=== PATIENT | female | born 1995 | race Two or more races ===

== ENCOUNTER 2021-08-25 11:15 | Inpatient (IN) | payer OTHER ==
[2021-08-25] MEDS ORDERED: CLINDAMYCIN 900 MG PREMIX IVPB 900 MG/50 ML BAG IVPB ONE (11:37)
[2021-08-25] MEDS ORDERED: OXYTOCIN 20 UNITS in 0.9% NS 20 UNIT/1,000 ML INFUS.BAG IV ONE (12:04)
[2021-08-25] MEDS ORDERED: BUTORPHANOL TARTRATE 1 MG/ML VIAL ONE (12:39)
[2021-08-25] MEDS ORDERED: PROMETHAZINE HCL 25 MG/1 ML VIAL ONE (12:39)
[2021-08-25] MEDS ORDERED: BUTORPHANOL TARTRATE 1 MG/ML VIAL IVPUSH ONE ×2 (12:47→13:57)
[2021-08-25] MEDS ORDERED: PROMETHAZINE HCL 25 MG/1 ML VIAL IVPUSH ONE ×2 (12:47→13:57)
[2021-08-25] MEDS ORDERED: PROMETHAZINE HCL 25 MG/1 ML VIAL IVPB ONE ×2 (12:47→13:45)
[2021-08-25] MEDS ORDERED: DEXTROSE 5%-LACTATED RINGERS 1,000 ML IV SCH ×2 (13:00→17:15)
[2021-08-25 13:31] LABS: BASO % 0.3 % (0-2.0); EOS % 1.1 % (0-4.5); HEMATOCRIT 32.3 % (32.4-45.2); HEMOGLOBIN 10.7 GM/dL (10.7-15.3); LYMPH % 9.1 % (8-40); MCH 27.7 pg (25.7-33.7); MCHC 33.1 g/dl (32.0-36.0); MEAN CELL VOLUME 83.8 fl (80-96); MEAN PLT VOLUME 11.3 fl (7.5-11.1); MONO % 6.5 % (3.8-10.2); PLATELET COUNT 153 10^3/uL (134-434); RBC 3.85 M/mm3 (3.60-5.2); WHITE BLOOD COUNT 14.4 K/mm3 (4.0-10.0)
[2021-08-25 13:36] LABS: INR 0.95 (0.83-1.09); PROTHROMBIN TIME (PATIENT) 10.6 SEC (9.7-13.0)
[2021-08-25 13:39] LABS: ACTIVATED PTT 25.9 SECONDS (25.2-36.5)
[2021-08-25 14:01] LABS: CALCIUM 8.4 mg/dL (8.5-10.1)
[2021-08-25 14:04] LABS: CREATININE 0.5 mg/dL (0.55-1.3)
[2021-08-25 14:07] VITALS: BMI 33.0
[2021-08-25 14:37] LABS: SYPHILIS W/ RPR CONF NON-REACTIVE (NONREACTIVE)
[2021-08-25] MEDS ORDERED: CLINDAMYCIN 900 MG PREMIX IVPB 900 MG/50 ML BAG IVPB SCH ×2 (15:00)
[2021-08-25 15:05] LABS: HIV INTERPRETATION NEGATIVE (NEGATIVE)
[2021-08-25 15:18] LABS: URINE BARBITURATES NEGATIVE (NEGATIVE)
[2021-08-25 15:19] LABS: COCAINE, UR NEGATIVE (NEGATIVE); METHADONE, UR NEGATIVE (NEGATIVE); OPIATES, URI NEGATIVE (NEGATIVE); PHENCYCLIDINE,URINE NEGATIVE (NEGATIVE); URINE BENZODIAZEPINES NEGATIVE (NEGATIVE)
[2021-08-25 15:35] LABS: URINE AMPHETAMINES NEGATIVE (NEGATIVE)
[2021-08-25] MEDS ORDERED: MIDAZOLAM HCL 2 MG/2 ML SINGLE DOSE VIAL ONE (16:26)
[2021-08-25 16:57] LABS: CORD HCO3 23.8 mmHg (20-29); CORD PCO2 56.8 mmHg (30-78)
[2021-08-25 17:00] LABS: CORD BASE EXCESS -5.8 mmol/L (0-2); CORD HCO3 20.2 mmHg (20-29); CORD PCO2 41.3 mmHg (30-78); CORD pH 7.307 (7.14-7.44)
[2021-08-25] MEDS ORDERED: BENZOCAINE 20% 57 GM BOTTLE TP PRN (17:04)
[2021-08-25] MEDS ORDERED: METHYLERGONOVINE MALEATE 0.2 MG/1 ML AMP IM PRN (17:04)
[2021-08-25] MEDS ORDERED: WITCH HAZEL 50% (TUCKS) 40 PAD/JAR PAD TP PRN (17:04)
[2021-08-25] MEDS ORDERED: oxyCODONE HCL 5 MG TABLET PO PRN ×2 (17:04)
[2021-08-25] MEDS ORDERED: BENZOCAINE 28 GM HEMORRHOIDAL OINTMENT PR PRN (17:04)
[2021-08-25] MEDS ORDERED: IBUPROFEN 800 MG/8 ML IJ IVPB PRN (17:04)
[2021-08-25] MEDS ORDERED: diphenhydrAMINE HCL 25 MG CAPSULE (FP) PO PRN (17:04)
[2021-08-25] MEDS ORDERED: OXYTOCIN 20 UNITS in 0.9% NS 20 UNIT/1,000 ML INFUS.BAG IV SCH (17:15)
[2021-08-25] MEDS: CLINDAMYCIN 900 MG PREMIX IVPB 900 MG/50 ML BAG IVPB SCH ×2 (17:51→22:57)
[2021-08-25] MEDS ORDERED: CEFAZOLIN 1 GM/D5W 50 ML IVPB SCH (18:00)
[2021-08-26] MEDS: CLINDAMYCIN 900 MG PREMIX IVPB 900 MG/50 ML BAG IVPB SCH (06:01)
[2021-08-26 06:06] LABS: BASO % 0.4 % (0-2.0); EOS % 0.4 % (0-4.5); HEMATOCRIT 27.9 % (32.4-45.2); HEMOGLOBIN 9.3 GM/dL (10.7-15.3); MCH 27.9 pg (25.7-33.7); MCHC 33.3 g/dl (32.0-36.0); MEAN CELL VOLUME 83.9 fl (80-96); MEAN PLT VOLUME 11.1 fl (7.5-11.1); MONO % 8.5 % (3.8-10.2); NEUT % 77.7 % (42.8-82.8); PLATELET COUNT 136 10^3/uL (134-434); RBC 3.33 M/mm3 (3.60-5.2); RDW 17.1 % (11.6-15.6); WHITE BLOOD COUNT 16.2 K/mm3 (4.0-10.0)
[2021-08-26] MEDS: IBUPROFEN 600 MG TABLET (FP) PO PRN ×3 (06:20→20:25)
[2021-08-26] MEDS: SIMETHICONE 80 MG TAB.CHEW (FP) PO PRN ×3 (06:20→20:25)
[2021-08-26] MEDS: ACETAMINOPHEN 325 MG TABLET (FP) PO PRN ×3 (06:20→20:25)
[2021-08-26] MEDS ORDERED: BISACODYL 10 MG SUPP.RECT PR PRN (17:04)
[2021-08-27] MEDS: SIMETHICONE 80 MG TAB.CHEW (FP) PO PRN ×4 (06:51→20:10)
[2021-08-27] MEDS: ACETAMINOPHEN 325 MG TABLET (FP) PO PRN ×4 (06:51→20:09)
[2021-08-27] MEDS: IBUPROFEN 600 MG TABLET (FP) PO PRN ×4 (06:51→20:12)
[2021-08-27] MEDS ORDERED: SENNOSIDES/DOCUSATE COMBO (SENNA PLUS) TABLET (UD) PO PRN (22:00)
[2021-08-28 07:56] LABS: BASO % 0.6 % (0-2.0); EOS % 2.1 % (0-4.5); HEMATOCRIT 25.9 % (32.4-45.2); HEMOGLOBIN 8.9 GM/dL (10.7-15.3); LYMPH % 16.5 % (8-40); MCH 28.6 pg (25.7-33.7); MCHC 34.2 g/dl (32.0-36.0); MEAN CELL VOLUME 83.5 fl (80-96); MEAN PLT VOLUME 10.8 fl (7.5-11.1); MONO % 6.8 % (3.8-10.2); PLATELET COUNT 156 10^3/uL (134-434); RDW 16.9 % (11.6-15.6); WHITE BLOOD COUNT 9.8 K/mm3 (4.0-10.0)
[2021-08-28] MEDS: IBUPROFEN 600 MG TABLET (FP) PO PRN (08:28)
[2021-08-28] MEDS: SIMETHICONE 80 MG TAB.CHEW (FP) PO PRN (08:28)
[2021-08-28] MEDS: ACETAMINOPHEN 325 MG TABLET (FP) PO PRN (08:29)
[2021-08-28 10:18] VITALS: BP 125/69; PULSE 93; TEMP 98.2
== END 2021-08-28 17:20 | disposition home or self-care (01) | DRG 540 ==
LOC: JLDR 11:15 → J3W 18:23
PROVIDERS: ADMIT Obstetrics & Gynecology; ATTEND Obstetrics & Gynecology
PROC: 10D00Z1 Extraction of Products of Conception, Low, Open Approach (ICD-10-PCS; principal; 2021-08-25)
DX: O48.0 Post-term pregnancy (principal); O62.1 Secondary uterine inertia; O62.0 Primary inadequate contractions; Z3A.40 40 weeks gestation of pregnancy; O99.343 Other mental disorders complicating pregnancy, third trimester; Z22.330 Carrier of Group B streptococcus; F41.8 Other specified anxiety disorders; Z37.0 Single live birth
CPT/HCPCS: 36415; 36600; 80048; 80307; 82803; 85025; 85610; 85730; 86780; 86850; 86900; 86901; 87389; 88307-TC; C9803; U0003; U0005